=== PATIENT | male | born 2000 | race Caucasian/White ===

== ENCOUNTER 2021-01-18 15:02 | Inpatient (IN) | payer MEDICAID, OTHER ==
[~2021-01-18] VITALS: Ht 180.3 cm; Wt 84.0 kg
[2021-01-18 17:35] LABS: BASOPHILS % 0.2 % (0.0-2.0); EOSINOPHILS % 0.3 % (0.0-5.0); HEMATOCRIT. 44.3 % (42.0-52.0); HEMOGLOBIN. 14.8 g/dL (14.0-18.0); LYMPHOCYTES % 10.3 % (20.0-50.0); MEAN CORPUSCULAR HEMOGLOBIN 27.9 pg (28.0-32.0); MEAN CORPUSCULAR VOLUME 83.6 fL (80.0-94.0); MEAN PLATELET VOLUME 9.4 fl (7.4-10.4); MONOCYTES % 6.4 % (2.0-8.0); NEUTROPHILS % 82.8 % (40.0-76.0); PLATELET 252 x1000/uL (130-400); RED BLOOD CELL COUNT 5.31 mill/uL (4.7-6.1); RED CELL DISTRIBUTION WIDTH 14.9 % (11.6-14.6)
[2021-01-18 17:45] LABS: PROTHROMBIN TIME 10.7 sec (9.6-11.0)
[2021-01-18 18:03] LABS: CHLORIDE 102 mEq/L (98-107)
[2021-01-18 18:06] LABS: ETHANOL BLOOD < 10 mg/dL
[2021-01-18] MEDS ORDERED: IBUPROFEN 600MG TABLET PO STA (19:41)
[2021-01-18 19:50] LABS: CLARITY URINE CLEAR (CLEAR); COLOR URINE YELLOW (YELLOW); KETONES URINE NEGATIVE (NEGATIVE); LEUKOCYTE ESTERASE URINE NEGATIVE (NEGATIVE); NITRITE URINE NEGATIVE (NEGATIVE); OCCULT BLOOD URINE NEGATIVE (NEGATIVE); PROTEIN URINE NEGATIVE (NEGATIVE); SPECIFIC GRAVITY URINE 1.009 (1.005-1.030); UROBILINOGEN URINE 0.2 E.U./dL (0.2-1.0)
[2021-01-18 20:10] LABS: *AMPHETAMINES SCREEN URINE NEGATIVE (NEGATIVE); *BARBITURATES SCREEN URINE NEGATIVE (NEGATIVE)
[2021-01-18 20:11] LABS: *BENZODIAZEPINES SCREEN URINE NEGATIVE (NEGATIVE); *COCAINE SCREEN URINE NEGATIVE (NEGATIVE); CANNABINOID URINE SCREEN NEGATIVE (NEGATIVE); METHADONE URINE SCREEN NEGATIVE (NEGATIVE); OPIATES URINE SCREEN NEGATIVE (NEGATIVE)
[2021-01-18 20:12] LABS: PHENCYCLIDINE URINE SCREEN NEGATIVE (NEGATIVE)
[2021-01-18] MEDS ORDERED: PIPERACILLIN/TAZ 3.375G PREMIX 50 ML IV ONE (21:30)
[2021-01-19] MEDS ORDERED: BUPIVACAINE HCL/PF 0.5% (5MG/ML) 10ML ONE (07:01)
[2021-01-19] MEDS ORDERED: SKIN ADHESIVE 0.7 GM EA TOP ONE (07:03)
[2021-01-19] MEDS ORDERED: NEOSTIGMINE METHYLSULFATE 1MG/ML 10 ML VIAL ONE (08:11)
[2021-01-19] MEDS ORDERED: FENTANYL CITRATE/PF 50MCG/ML 2ML VIAL ONE (08:11)
[2021-01-19] MEDS ORDERED: ROCURONIUM BROMIDE 10MG/ML VIAL 5ML IV ONE (08:11)
[2021-01-19] MEDS ORDERED: METOCLOPRAMIDE HCL 10MG/2ML VIAL ONE (08:12)
[2021-01-19] MEDS ORDERED: SODIUM CHLORIDE 0.9% 10ML VIAL ONE (08:12)
[2021-01-19] MEDS ORDERED: GLYCOPYRROLATE 0.2 MG/ML 2ML VIAL ONE (08:12)
[2021-01-19] MEDS ORDERED: PROPOFOL 200MG/20ML VIAL IV ONE (08:12)
[2021-01-19] MEDS ORDERED: PHENYLEPHRINE HCL 10 MG/ML 1ML (IV VIAL) IV ONE (08:12)
[2021-01-19] MEDS ORDERED: ONDANSETRON HCL 4MG/2ML INJ ONE (08:12)
[2021-01-19] MEDS ORDERED: CEFAZOLIN SODIUM 1000MG/VIAL ONE (08:12)
[2021-01-19] MEDS ORDERED: MIDAZOLAM HCL 2 MG/2 ML VIAL ONE (08:12)
[2021-01-19] MEDS ORDERED: SUCCINYLCHOLINE CHLORIDE 200MG/10ML IV ONE (08:12)
[2021-01-19] MEDS ORDERED: SODIUM CHLORIDE 0.9% 1,000 ML IV ONE (09:00)
[2021-01-19] MEDS ORDERED: MORPHINE SULFATE 2 MG/ML CPJ (NOT FOR IM USE) IV PRN (09:00)
[2021-01-19] MEDS ORDERED: HYDROMORPHONE HCL/PF 2MG/ML CPJ IV PRN (09:00)
[2021-01-19] MEDS ORDERED: MEPERIDINE HCL/PF 25MG/ML CPJ IV PRN ×2 (09:00)
[2021-01-19] MEDS ORDERED: ONDANSETRON HCL 4MG/2ML INJ IV PRN (09:00)
[2021-01-19 09:59] VITALS: BP 122/65
== END 2021-01-19 12:30 | disposition home or self-care (01) | DRG 234 ==
LOC: ER 15:02 → MICUSO 01-19 01:56 → UNDOADMIN 01-19 06:44
PROVIDERS: ADMIT Internal Medicine; ATTEND Internal Medicine
PROC: 0DTJ4ZZ Resection of Appendix, Percutaneous Endoscopic Approach (ICD-10-PCS; principal; 2021-01-19)
DX: K35.80 Unspecified acute appendicitis (principal); K81.0 Acute cholecystitis; Z20.822 Contact with and (suspected) exposure to COVID-19
CPT/HCPCS: 36415; 74176; 80053; 80305; 80320; 81003; 85025; 87426; 88304; 99285; J0330; J0690; J2175; J2250; J2370; J2405; J2543; J2704; J2710; J2765; J3010; J3490; G0480

== ENCOUNTER 2022-09-29 00:40 | Emergency (ER) | payer OTHER ==
[~2022-09-29] VITALS: Ht 180.3 cm; Wt 88.0 kg
[2022-09-29 01:15] VITALS: TEMP 98.4; O2SAT 98
[2022-09-29] MEDS ORDERED: IBUPROFEN 600MG TABLET PO STA (03:42)
[2022-09-29] MEDS ORDERED: IBUP-2029 PO (05:42)
[2022-09-29 05:57] VITALS: BP 144/82; PULSE 75; RESP 18
== END 2022-09-29 05:58 | disposition home or self-care (01) ==
LOC: ER 00:40
DX: M79.674 Pain in right toe(s) (principal)
CPT/HCPCS: 73660; 99283